=== PATIENT | female | born 1985 | race Caucasian/White ===

== ENCOUNTER 2024-08-04 22:24 | Emergency (ER) | payer BC ==
[~2024-08-04] VITALS: Ht 172.7 cm; Wt 77.1 kg
[2024-08-04 22:27] VITALS: BP 105/68; PULSE 66; RESP 18; TEMP 97.7; O2SAT 97
[2024-08-04] MEDS ORDERED: MORPHINE SULFATE 4 MG/ML SYR IVP ONE (23:40)
[2024-08-04 23:58] LABS: APPEARANCE,URINE CLEAR (CLEAR); BASOPHILS % (AUTO) 0.5 % (0.0-2.0); BILIRUBIN,URINE NEGATIVE (NEGATIVE); BLOOD, URINE 3+ (NEGATIVE); COLOR,URINE YELLOW (YELLOW); EOSINOPHILS % (AUTO) 0.2 % (0.0-4.0); HEMATOCRIT 36.1 % (36-48); HEMOGLOBIN 11.9 g/dL (12.0-16.0); LEUKOCYTE ESTERASE ,URINE NEGATIVE (NEGATIVE); LYMPHOCYTES # (AUTO) 1.7 K/uL (2.5-16.5); LYMPHOCYTES % (AUTO) 19.5 % (20.5-51.1); MEAN CORPUSCULAR HEMOGLOBIN 28 pg (27-31); MEAN CORPUSCULAR HGB CONC 33 g/dL (33-37); MONOCYTES # (AUTO) 0.7 K/uL (0.8-1.0); MONOCYTES % (AUTO) 8.4 % (1.7-9.3); NEUTROPHILS # (AUTO) 6.3 K/uL (1.8-7.7); NEUTROPHILS % (AUTO) 71.4 % (42.2-75.2); NITRITE, URINE NEGATIVE (NEGATIVE); PLATELET COUNT (AUTO) 186 K/uL (140-450); PROTEIN,URINE TRACE (NEGATIVE); RED CELL DISTRIBUTION WIDTH 13.3 % (11.6-13.7); UGLUCOSE NEGATIVE (NEGATIVE); UROBILINOGEN,URINE 0.2 EU/dL (0.2 - 1); WHITE BLOOD COUNT (AUTO) 8.8 K/uL (4.8-10.8)
[2024-08-05 00:04] LABS: RBC,URINE 11-20 (MOD) /HPF (0-5); WBC,URINE 0-5 /HPF (0-5)
[2024-08-05 00:05] LABS: ANION GAP 10.2 (8-16); BACTERIA,URINE 10-30 (MOD) /HPF (None Seen); CALCIUM 8.5 mg/dL (8.5-10.1); CARBON DIOXIDE 29.7 mmol/L (21-32); CREATININE 0.9 mg/dL (0.6-1.3); MUCUS,URINE 1+ /LPF (None Seen); POTASSIUM 3.9 mmol/L (3.5-5.1); SQUAMOUS EPITHELIAL CELL,UR 0-3 (FEW) /LPF (0-3 (FEW))
[2024-08-05 00:12] LABS: ALBUMIN 3.5 g/dL (3.4-5.0); BILIRUBIN,DIRECT 0.1 mg/dL (0.0-0.3); TOTAL BILIRUBIN 0.6 mg/dL (0.0-1.0); TOTAL PROTEIN, SERUM 7.1 g/dL (6.4-8.2)
[2024-08-05] MEDS: ONDANSETRON 4 MG/2 ML VIAL IVP ONE (00:32)
[2024-08-05] MEDS: ACETAMINOPHEN EXTRA STRENGTH 500 MG TAB PO ONE (00:32)
[2024-08-05] MEDS: NACL 0.9% 1,000 ML IV ONE (00:56)
[2024-08-05] MEDS ORDERED: NAPR-337 PO (03:22)
[2024-08-05] MEDS ORDERED: CEPH-588 PO (03:22)
[2024-08-05] MEDS ORDERED: ACET500T99 PO (03:22)
[2024-08-05] MEDS ORDERED: ONDA-188 PO (03:22)
[2024-08-05] MEDS: cephALEXin 500 MG CAP PO ONE (03:34)
[2024-08-05] MEDS: KETOROLAC 30 MG/ML VIAL IVP ONE (03:41)
[2024-08-05 04:09] VITALS: BP 126/70; PULSE 70; RESP 18; TEMP 98; O2SAT 97
== END 2024-08-05 04:12 | disposition home or self-care (01) ==
LOC: MED 22:24
DX: N20.1 Calculus of ureter (principal); Z98.890 Other specified postprocedural states; Z79.899 Other long term (current) drug therapy
CPT/HCPCS: 36415; 74176; 80048; 80076; 81001; 81025; 83690; 85025; 87086; 96361; 96374; 96375; 99285; J1885; J2405; J7030